=== PATIENT | female | born 1925 | race Caucasian/White ===

== ENCOUNTER 2017-09-18 12:35 | Emergency (ER) | payer MEDICARE, MEDICAID ==
[~2017-09-18] VITALS: Ht 149.9 cm; Wt 61.0 kg
[~2017-09-18 12:35] MED LIST: ATOR40TA70 PO; ESCI10TA54 PO; ESOM40CA PO; OLME40TA12 PO
[2017-09-18 14:53] LABS: BASOPHILS % 0.7 % (0.0-2.0); EOSINOPHILS % 3.2 % (0.0-5.0); HEMATOCRIT. 37.7 % (36.0-48.0); HEMOGLOBIN. 12.6 g/dL (12.0-16.0); LYMPHOCYTES % 16.7 % (20.0-50.0); MEAN CORPUSCULAR HEMOGLOBIN 29.5 pg (28.0-32.0); MEAN CORPUSCULAR VOLUME 88.4 fL (81.0-99.0); MEAN PLATELET VOLUME 9.1 fl (7.4-10.4); MONOCYTES % 8.8 % (2.0-8.0); NEUTROPHILS % 70.6 % (40.0-76.0); PLATELET 166 x1000/uL (130-400); RED BLOOD CELL COUNT 4.27 mill/uL (4.2-5.4)
[2017-09-18 15:01] LABS: INR 1.1; PARTIAL THROMBOPLASTIN TIME 23.3 sec (23.4-31.0); PROTHROMBIN TIME 11.3 sec (9.4-11.6)
[2017-09-18 15:38] LABS: CHLORIDE 108 mEq/L (98-107)
[2017-09-18 16:05] VITALS: BP 135/64
== END 2017-09-18 16:22 | disposition home or self-care (01) ==
LOC: ER 13:15
DX: R53.1 Weakness (principal); J45.909 Unspecified asthma, uncomplicated; E78.00 Pure hypercholesterolemia, unspecified; I10 Essential (primary) hypertension; R79.1 Abnormal coagulation profile
CPT/HCPCS: 36415; 71045; 80053; 83690; 84484; 85025; 85610; 85730; 93005; 99285